=== PATIENT | male | born 1975 | race Caucasian/White ===

== ENCOUNTER 2023-02-06 17:04 | Emergency (ER) | payer OTHER ==
[2023-02-06 17:14] VITALS: BP 127/79; PULSE 66; RESP 18; TEMP 98.2; BMI 26.4
[2023-02-06] MEDS ORDERED: KETOROLAC TROMETHAMINE 30 MG/1 ML VIAL IM ONE (19:02)
[2023-02-06] MEDS ORDERED: ACETAMINOPHEN 325 MG TABLET (FP) PO ONE (19:02)
[2023-02-06] MEDS ORDERED: KETOROLAC TROMETHAMINE 30 MG/1 ML VIAL ONE (19:18)
[2023-02-06] MEDS ORDERED: ACETAMINOPHEN 500 MG TABLET (FP) ONE (19:18)
== END 2023-02-06 20:46 | disposition home or self-care (01) ==
LOC: JERFT 17:04
PROC: 3E0233Z Introduction of Anti-inflammatory into Muscle, Percutaneous Approach (ICD-10-PCS; principal; 2023-02-06)
DX: M25.521 Pain in right elbow (principal); M25.522 Pain in left elbow; M25.561 Pain in right knee; M13.0 Polyarthritis, unspecified
CPT/HCPCS: 99284-25

== ENCOUNTER 2024-04-07 09:15 | Emergency (ER) | payer OTHER ==
[2024-04-07 09:23] VITALS: BP 129/83; TEMP 97.5
[2024-04-07 10:02] VITALS: PULSE 65; RESP 20
[2024-04-07] MEDS ORDERED: KETOROLAC TROMETHAMINE 30 MG/1 ML VIAL ONE (11:02)
[2024-04-07] MEDS ORDERED: ACETAMINOPHEN 500 MG TABLET (FP) ONE (11:03)
[2024-04-07] MEDS: KETOROLAC TROMETHAMINE 30 MG/1 ML VIAL IM ONE (11:11)
[2024-04-07] MEDS: ACETAMINOPHEN 500 MG TABLET (FP) PO ONE (11:11)
== END 2024-04-07 13:50 | disposition home or self-care (01) ==
LOC: JER 09:15
PROC: 3E0133Z Introduction of Anti-inflammatory into Subcutaneous Tissue, Percutaneous Approach (ICD-10-PCS; principal; 2024-04-07)
DX: S20.211A Contusion of right front wall of thorax, initial encounter (principal); M25.511 Pain in right shoulder; M54.2 Cervicalgia; W18.30XA Fall on same level, unspecified, initial encounter
CPT/HCPCS: 71250-TC; 72125-TC; 73030-TC-RT-FY; 99284-25

== ENCOUNTER 2024-05-04 14:37 | Emergency (ER) | payer OTHER ==
[2024-05-04 14:47] VITALS: BP 110/73; PULSE 72; RESP 18; TEMP 98.4
[2024-05-04] MEDS ORDERED: METOCLOPRAMIDE HCL INJECTION 10 MG/2 ML VIAL ONE (16:57)
[2024-05-04] MEDS ORDERED: ACETAMINOPHEN INJECTION 100 ML ONE (16:57)
[2024-05-04] MEDS: SODIUM CHLORIDE 1,000 ML IV STA (17:14)
[2024-05-04] MEDS: ACETAMINOPHEN 1000 MG/100 ML BAG IVPB ONE (17:14)
[2024-05-04] MEDS: METOCLOPRAMIDE HCL INJECTION 10 MG/2 ML VIAL IVPB ONE (17:14)
[2024-05-04 17:20] LABS: HEMATOCRIT 46.3 % (35.4-49); HEMOGLOBIN 15.3 GM/dL (11.7-16.9); LYMPH % 29.7 % (8-40); MCH 29.4 pg (25.7-33.7); MEAN PLT VOLUME 8.3 fl (7.5-11.1); MONO % 6.7 % (3.8-10.2); NEUT % 57.6 % (42.8-82.8); PLATELET COUNT 204 10^3/uL (134-434); RDW 14.4 % (11.9-15.9); WHITE BLOOD COUNT 7.3 K/mm3 (4.0-10.0)
[2024-05-04 17:26] LABS: INR 0.91 (0.83-1.09); PROTHROMBIN TIME (PATIENT) 10.5 SEC (9.7-13.0)
[2024-05-04 17:28] LABS: ACTIVATED PTT 32.5 SECONDS (25.2-36.5)
[2024-05-04 17:41] LABS: POTASSIUM 3.8 mmol/L (3.5-5.1)
[2024-05-04 17:43] LABS: CALCIUM 8.9 mg/dL (8.5-10.1)
[2024-05-04 17:44] LABS: ALBUMIN 3.6 g/dl (3.4-5.0); BLOOD UREA NITROGEN 16.3 mg/dL (7-18); MAGNESIUM 2.3 mg/dL (1.8-2.4)
[2024-05-04 17:47] LABS: CREATININE 0.9 mg/dL (0.55-1.3)
[2024-05-04 17:48] LABS: BILIRUBIN,TOTAL 0.8 mg/dL (0.2-1)
[2024-05-04] MEDS ORDERED: MECLIZINE HCL 25 MG TABLET (FP) ONE (17:51)
[2024-05-04] MEDS: MECLIZINE HCL 25 MG TABLET (FP) PO ONE (17:57)
[2024-05-04 20:04] LABS: HIV INTERPRETATION NEGATIVE (NEGATIVE)
== END 2024-05-04 21:42 | disposition home or self-care (01) ==
LOC: JER 14:37
PROC: 3E033NZ Introduction of Analgesics, Hypnotics, Sedatives into Peripheral Vein, Percutaneous Approach (ICD-10-PCS; principal; 2024-05-04)
PROC: 3E033GC Introduction of Other Therapeutic Substance into Peripheral Vein, Percutaneous Approach (ICD-10-PCS; 2024-05-04)
PROC: 3E0337Z Introduction of Electrolytic and Water Balance Substance into Peripheral Vein, Percutaneous Approach (ICD-10-PCS; 2024-05-04)
DX: R51.9 Headache, unspecified (principal); R42 Dizziness and giddiness; R53.83 Other fatigue; R53.1 Weakness; R07.2 Precordial pain; R06.02 Shortness of breath; R11.0 Nausea; Z20.822 Contact with and (suspected) exposure to COVID-19
CPT/HCPCS: 0241U-QW; 36415; 70450-TC; 71046-TC-FY; 80053; 83735; 84484; 85025; 85610; 85730; 86803; 87389; 93005; 93010; 96361; 96374; 96375; 99285-25; J0131